=== PATIENT | male | born 1980 | race Caucasian/White ===

== ENCOUNTER 2017-11-18 09:52 | Emergency (ER) | payer OTHER ==
[2017-11-18] MEDS: ASPIRIN 81 MG CHEW TABLET PO (10:15)
[2017-11-18] MEDS: KETOROLAC 30 MG/ML VIAL (J1885) IV (10:15)
[2017-11-18 10:59] LABS: BASO # 0.1 10^3/uL (0.0-0.2); EOS # 0.5 10^3/uL (0.0-0.50); EOS % 6.8 % (0.0-3.0); HEMATOCRIT 46.9 % (42.0-52.0); HEMOGLOBIN 15.8 g/dl (13.5-17.5); IMMATURE GRANULOCYTE % 0.1 % (0-3.0); LYMPH # 1.5 10^3/uL (1.5-4.5); LYMPH % 21.8 % (24.0-44.0); MEAN CORPUSCULAR HEMOGLOBIN 31.5 pg (27.0-33.0); MEAN CORPUSCULAR HGB CONC 33.7 g/dl (32.0-36.5); MEAN CORPUSCULAR VOLUME 93.4 fl (80.0-96.0); MONO # 0.8 10^3/uL (0.0-0.8); MONO % 11.1 % (0.0-5.0); NEUTROPHILS % 59.2 % (36.0-66.0); PLATELET COUNT, AUTOMATED 241 10^3/uL (150-450); RED BLOOD COUNT 5.02 10^6/uL (4.30-6.10); RED CELL DISTRIBUTION WIDTH 13.4 % (11.5-14.5); WHITE BLOOD COUNT 6.8 10^3/uL (4.0-10.0)
[2017-11-18] MEDS ORDERED: ISOVUE-370 76% 100ML VIAL (Q9967) As Ordered (11:21)
[2017-11-18 11:22] LABS: ALBUMIN 3.9 GM/DL (3.2-5.2); ALBUMIN/GLOBULIN RATIO 1.18 (1.00-1.93); ALKALINE PHOSPHATASE 78 U/L (45-117); ALT/SGPT 21 U/L (12-78); ANION GAP 4 MEQ/L (8-16); AST/SGOT 14 U/L (7-37); BILIRUBIN,DIRECT < 0.1 MG/DL (0.0-0.2); BILIRUBIN,TOTAL 0.3 MG/DL (0.2-1.0); BLOOD UREA NITROGEN 8 MG/DL (7-18); CALCIUM LEVEL 8.5 MG/DL (8.5-10.1); CARBON DIOXIDE LEVEL 28 MEQ/L (21-32); CHLORIDE LEVEL 110 MEQ/L (98-107); CPK CREATINE PHOSPHOKINASE 82 U/L (39-308); CREATININE FOR GFR 0.77 MG/DL (0.70-1.30); GLOMERULAR FILTRATION RATE > 60.0 (>60); GLUCOSE, FASTING 96 MG/DL (70-100); LIPASE 80 U/L (73-393); POTASSIUM SERUM 4.2 MEQ/L (3.5-5.1); SODIUM LEVEL 142 MEQ/L (136-145); TOTAL PROTEIN 7.2 GM/DL (6.4-8.2); TROPONIN I < 0.02 NG/ML (< 0.10)
[2017-11-18 11:28] LABS: CK-MB VALUE MASS < 1.0 NG/ML (<3.6); MB/CK RELATIVE INDEX 1.21 (< OR =4)
== END 2017-11-18 12:11 | disposition home or self-care (01) ==
LOC: M ED 09:52
DX: R07.1 Chest pain on breathing (principal); F17.200 Nicotine dependence, unspecified, uncomplicated; R91.8 Other nonspecific abnormal finding of lung field
CPT/HCPCS: Q9967

== ENCOUNTER → 2018-02-22 | Outpatient (REF) | payer OTHER, MEDICAID ==
[2018-02-23 08:11] LABS: RUBELLA IgG QUALITATIVE IMMUNE (IMMUNE)
[2018-02-24 08:06] LABS: RUBEOLA IgG ANTIBODY 56.6 AU/mL (Immune >29.9)
[2018-02-24 08:06] LABS: MUMPS VIRUS IgG ANTIBODY 21.6 AU/mL (Immune >10.9)
== END ==
LOC: M LAB REF 17:32
DX: Z02.89 Encounter for other administrative examinations (principal)

== ENCOUNTER 2018-05-28 11:52 | Emergency (ER) | payer OTHER, MEDICAID | END 2018-05-28 13:06 | disposition home or self-care (01) | LOC: M ED 11:52 | DX: K02.9 Dental caries, unspecified (principal); F17.200 Nicotine dependence, unspecified, uncomplicated; Z79.899 Other long term (current) drug therapy | CPT/HCPCS: 99282 ==

== ENCOUNTER 2018-12-15 09:46 | Emergency (ER) | payer MEDICAID, OTHER, SELFPAY ==
[~2018-12-15] VITALS: Ht 167.6 cm; Wt 53.8 kg
[~2018-12-15 09:46] MED LIST: CEFD1CAP8 PO; NAPR-837 PO; PERC5TAB12 PO
[2018-12-15 09:47] VITALS: BP 128/79
[2018-12-15] MEDS ORDERED: AUGM875T28 PO (10:27)
[2018-12-15] MEDS ORDERED: IBUP-1022 PO (10:27)
== END 2018-12-15 10:41 | disposition home or self-care (01) ==
LOC: M ED 09:46
DX: K04.7 Periapical abscess without sinus (principal); K08.89 Other specified disorders of teeth and supporting structures; Z72.0 Tobacco use

== ENCOUNTER 2019-03-09 09:28 | Emergency (ER) | payer SELFPAY ==
[~2019-03-09] VITALS: Ht 167.6 cm; Wt 51.9 kg
[~2019-03-09 09:28] MED LIST changes: +AUGM875T28 PO; +IBUP-1022 PO
--- NOTE | 2019-03-09 10:41 | REP ---
Chest x-ray: Two views. History: Posterior rib pain, shortness of breath. Question trauma. . Comparison study: November 18, 2017 . Findings: The lungs are well inflated and free of infiltrate. The pleural angles are sharp. The heart size is normal. Pulmonary vasculature is not increased. No significant bony abnormality is seen. Impression: Negative chest x-ray. Electronically Signed by Vu Esparza MD 03/09/2019 10:32 A
--- NOTE | 2019-03-09 10:41 | REP ---
Right scapula: Two views. History: Right scapular pain. Question of trauma. Findings: AP and tangential scapular Y views demonstrate normal bones, joints and soft tissues. The glenohumeral and acromioclavicular joints are normally aligned. No fractures seen. Impression: Negative radiographs of the right scapula. Electronically Signed by Vu Esparza MD 03/09/2019 10:33 A
[2019-03-09 11:30] VITALS: BP 122/77
== END 2019-03-09 11:34 | disposition home or self-care (01) ==
LOC: M ED 09:28
DX: M25.511 Pain in right shoulder (principal); F17.210 Nicotine dependence, cigarettes, uncomplicated

== ENCOUNTER 2019-04-19 14:10 | Emergency (ER) | payer SELFPAY ==
[~2019-04-19] VITALS: Ht 167.6 cm; Wt 55.9 kg
[2019-04-19 14:10] VITALS: BP 130/72
[2019-04-19] MEDS ORDERED: PENI500T PO (15:32)
[2019-04-19] MEDS ORDERED: NAPR-837 PO (15:32)
== END 2019-04-19 15:42 | disposition home or self-care (01) ==
LOC: M ED 14:10
DX: K08.89 Other specified disorders of teeth and supporting structures (principal); F17.200 Nicotine dependence, unspecified, uncomplicated

== ENCOUNTER → 2019-06-21 | Outpatient (CLI) | payer SELFPAY ==
[~2019-06-21] MED LIST changes: +PENI500T PO
== END ==
LOC: M OUTALCOH 08:39
PROVIDERS: ATTEND Psychiatry & Neurology Psychiatry
DX: Z03.89 Encounter for observation for other suspected diseases and conditions ruled out (principal)

== ENCOUNTER 2019-07-06 11:16 | Outpatient (RCR) | payer SELFPAY | END 2019-07-11 | LOC: M OUTALCOH 11:16 | PROVIDERS: ATTEND Psychiatry & Neurology Psychiatry | DX: Z03.89 Encounter for observation for other suspected diseases and conditions ruled out (principal); F17.200 Nicotine dependence, unspecified, uncomplicated ==

== ENCOUNTER 2022-12-29 09:46 | Emergency (ER) | payer OTHER, SELFPAY ==
[~2022-12-29] VITALS: Ht 165.1 cm; Wt 57.7 kg
[~2022-12-29 09:46] MED LIST changes: -CEFD1CAP8 PO; +CEFD300C41 PO
[2022-12-29 09:47] VITALS: BP 125/85; TEMP 97.6; O2SAT 97
== END 2022-12-29 11:16 | disposition left against medical advice (07) ==
LOC: M ED 09:46
DX: Z53.21 Procedure and treatment not carried out due to patient leaving prior to being seen by health care provider (principal)

== ENCOUNTER → 2023-10-13 | Outpatient (REF) | payer OTHER ==
[~2023-10-13] MED LIST changes: +CEFD1CAP9 PO; -CEFD300C41 PO
[2023-10-13 13:08] LABS: HEMOGLOBIN A1c 5.3 % (4.0-6.0)
[2023-10-13 13:19] LABS: FREE T4 1.09 NG/DL (0.89-1.76)
[2023-10-13 13:20] LABS: THYROID STIMULATING HORMONE 2.282 uIU/ML (0.55-4.78)
[2023-10-13 13:24] LABS: ALBUMIN 4.4 G/DL (3.2-5.2); ALKALINE PHOSPHATASE 52 U/L (46-116); ALT/SGPT 22 U/L (7.0-40); AST/SGOT 19 U/L (<34); BILIRUBIN,TOTAL 0.4 MG/DL (0.3-1.2); BLOOD UREA NITROGEN 9 MG/DL (9-23); CALCIUM LEVEL 9.1 MG/DL (8.5-10.1); CARBON DIOXIDE LEVEL 28 MMOL/L (20-31); CHLORIDE LEVEL 107 MMOL/L (98-107); CHOLESTEROL LEVEL 150 MG/DL (<200); CREATININE FOR GFR 0.76 MG/DL (0.70-1.30); GLOMERULAR FILTRATION RATE > 60.0 (>60); GLUCOSE, FASTING 103 MG/DL (60-100); HDL CHOLESTEROL 44.1 MG/DL (>40); LDL CHOLESTEROL 93.7 MG/DL (<100); NON-HDL-C 105.9 MG/DL; POTASSIUM SERUM 4.5 MMOL/L (3.5-5.1); SODIUM LEVEL 142 MMOL/L (136-145); TOTAL PROTEIN 6.7 G/DL (5.7-8.2); TRIGLYCERIDES LEVEL 61 MG/DL (<150); VITAMIN B12 LEVEL 373 PG/ML (211-911)
== END ==
LOC: M LAB REF 11:38
PROVIDERS: ATTEND Family Medicine Addiction Medicine
DX: R20.2 Paresthesia of skin (principal); Z13.228 Encounter for screening for other metabolic disorders

== ENCOUNTER 2024-02-09 11:48 | Emergency (ER) | payer OTHER ==
[~2024-02-09] VITALS: Ht 165.1 cm; Wt 55.6 kg
[2024-02-09 11:48] VITALS: BP 122/76; TEMP 98.6; O2SAT 96
[2024-02-09] MEDS ORDERED: BENA25CA4 PO (11:53)
== END 2024-02-09 14:36 | disposition left against medical advice (07) ==
LOC: M ED 11:48
DX: Z53.21 Procedure and treatment not carried out due to patient leaving prior to being seen by health care provider (principal)